=== PATIENT | female | born 1975 | race African-American/Black ===

== ENCOUNTER 2018-07-17 22:22 | Emergency (ER) | payer OTHER ==
[2018-07-17] MEDS ORDERED: Ketorolac 30 MG/ML SDV IVPUSH ONE (22:39)
[2018-07-17] MEDS ORDERED: Sodium Chloride 0.9% 10 ML Syringe FLUSH PRN (22:39)
[2018-07-17] MEDS ORDERED: Sodium Chloride 0.9% 1,000 ML IV ONE (22:39)
[2018-07-17] MEDS ORDERED: Sodium Chloride 0.9% 2.5 ML Syringe FLUSH PRN (22:39)
[2018-07-17] MEDS ORDERED: Morphine 2 MG/ML Syringe IVPUSH ONE (22:39)
--- NOTE | 2018-07-17 22:40 | EDM.PDOC ---
ED HPI GENERAL MEDICAL PROBLEM - General Chief Complaint: Abdominal Pain Stated Complaint: RIGHT SIDE ABDOMINAL PAIN Time Seen by Provider: 07/17/18 22:32 - History of Present Illness INITIAL COMMENTS - FREE TEXT/NARRATIVE: HISTORY AND PHYSICAL: History of present illness: The patient is a 42-year-old female was a known history of hepatitis C but is never received any treatment for that and has never seen a child psychologist and presents with persistent right upper quadrant pain. I saw this patient in April of last year and had done a workup consisting of labs and a CAT scan and at that point she had a slight bump in her LFTs but nothing significant and her CT was within normal limits. She was diagnosed with the UTI and was treated for that. The patient says that she felt better with the antibiotics and that after about 2 or 3 weeks the pain returned. It is constant pretty much every day and is not this early change with activity certain foods. She has not called to schedule a follow-up appointment in the clinic and she says she has no insurance. She has no fevers chills nausea vomiting or diarrhea and no black or bloody stools are pasty stools. She has no chest pain or shortness of breath. The patient says it does not miss early get worse with certain foods but she does eat a lot of avocado and cheese. She has taken [id number] ibuprofen for the pain and has no acid reflux or acid like burps. She says she has been feeling bloated for several months and that that is not new or different. She is here tonight because she is frustrated about the pain. The patient has a history of multiple C-sections and a bilateral tubal ligation but no other abdominal surgical history. Review of systems: As per history of present illness and below otherwise all systems reviewed and negative. Past medical history: As per history of present illness and as reviewed below otherwise noncontributory. Surgical history: As per history of present illness and as reviewed below otherwise noncontributory. Social history: No reported history of drug or alcohol abuse. Family history: As per history of present illness and as reviewed below otherwise noncontributory. Physical exam: General: Well-developed well-nourished female who is overweight and nontoxic and vital signs were noted by me. The patient moves very easily in the ED and does not look like she is in any distress or discomfort. HEENT: Atraumatic, normocephalic, pupils reactive, negative for conjunctival pallor or scleral icterus, mucous membranes moist, throat clear, neck supple, nontender, trachea midline. Lungs: Clear to auscultation, breath sounds equal bilaterally, chest nontender. Heart: S1S2, regular rate and rhythm no overt murmurs Abdomen: Soft, nondistended, Negative for masses or hepatosplenomegaly. Negative for costovertebral tenderness. Bowel sounds are hypoactive and on palpation there is only some tenderness in the right upper quadrant on deep palpation without rebound or guarding. Pelvis: Stable nontender. Genitourinary: Deferred. Rectal: Deferred. Extremities: Atraumatic, full range of motion without defects or deficits. Neurovascular unremarkable. Neuro: Awake, alert, oriented. Cranial nerves II through XII unremarkable. Cerebellum unremarkable. Motor and sensory unremarkable throughout. Exam nonfocal. Diagnostics and Therapeutics: Testing and diagnostics were ordered along with therapeutics including labs CT scan IV fluids and pain medication. The nurse went in to start the patient's IV and was unable to get it and the patient at that point that she doesn't want anymore attempts for IVs and she doesn't want any more treatment. I went into the room and the patient had her coat on already and I asked why she wouldn't let us try to do the testing and the IV again and she said she just didn't want anything done and she personally did not like me and didn't want to be taken care of by me. I told her that was her choice and that was completely fine and she says she like to leave immediately and so she signed an AMA form. Impression: Recurrent right upper quadrant pain with history of hep C, signed AMA prior to testing Definitive disposition and diagnosis as appropriate pending reevaluation and review of above. abdominal Pain Score (Numeric/FACES): 10 - Related Data Allergies Allergy/AdvReac Type Severity Reaction Status Date / Time No Known Allergies Allergy Verified 07/17/18 22:33 Home Meds: Home Meds . 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: - Infectious Disease History Infectious Disease History: Reports: Chicken Pox, Hepatitis C - Past Surgical History GI Surgical History: Reports: None Female Surgical History: Reports: Section, Tubal Ligation Social & Family History - Family History Family Medical History: Noncontributory - Tobacco Use Smoking Status *Q: Current Every Day Smoker Years of Tobacco use: 20 Packs/Tins Daily: 0.5 - Caffeine Use Caffeine Use: Reports: Coffee, Energy Drinks - Recreational Drug Use Recreational Drug Use: No ED ROS GENERAL - Review of Systems Review Of Systems: ROS reveals no pertinent complaints other than HPI. ED EXAM, GENERAL - Physical Exam Exam: See Below (See dictation) Course - Vital Signs Last Recorded V/S: Last Vital Signs Temp 36.1 C 07/17/18 22:31 Pulse 92 07/17/18 22:31 Resp 18 07/17/18 22:31 BP 118/78 07/17/18 22:31 Pulse Ox 95 07/17/18 22:31 - Orders/Labs/Meds Orders: Active Orders 24 hr Category Date Time Status Abdomen Pelvis w Cont [CT] Stat Exams 07/17/18 22:39 Stop Req CBC WITH AUTO DIFF [HEME] Stat Lab 07/17/18 22:39 Stop Req HELICOBACTER PYLORI AB IGG [CHEM] Stat Lab 07/17/18 22:39 Stop Req INR,PT,PROTHROMBIN TIME [COAG] Stat Lab 07/17/18 22:40 Stop Req Sodium Chloride 0.9% [Normal Saline] 1,000 ml Med 07/17/18 22:39 Stop Req IV STAT Labs: Laboratory Tests 07/17/18 Range/Units 22:40 Urine Color YELLOW Urine Appearance CLEAR Urine pH 6.0 (5.0-8.0) Ur Specific [place] >= 1.030 (1.001-1.035) Urine Protein NEGATIVE (NEGATIVE) mg/dL Urine Glucose (UA) NEGATIVE (NEGATIVE) mg/dL Urine Ketones NEGATIVE (NEGATIVE) mg/dL Urine Occult Blood NEGATIVE (NEGATIVE) Urine Nitrite NEGATIVE (NEGATIVE) Urine Bilirubin NEGATIVE (NEGATIVE) Urine Urobilinogen 0.2 (<2.0) EU/dL Ur Leukocyte Esterase NEGATIVE (NEGATIVE) Meds: Medications Discontinued Medications Generic Name Dose Route Start Last Admin Trade Name Freq PRN Reason Stop Dose Admin Sodium Chloride 1,000 mls @ 999 mls/hr 07/17/18 22:39 Normal Saline IV 07/17/18 23:39 STAT ONE Ketorolac Tromethamine 30 mg 07/17/18 22:39 Toradol IVPUSH 07/17/18 22:40 ONETIME ONE Morphine Sulfate 2 mg 07/17/18 22:39 Morphine IVPUSH 07/17/18 22:40 ONETIME ONE Sodium Chloride 10 ml 07/17/18 22:39 Saline Flush FLUSH ASDIRECTED PRN Keep Vein Open Sodium Chloride 2.5 ml 07/17/18 22:39 Saline Flush FLUSH ASDIRECTED PRN Keep Vein Open Departure - Departure Time of Disposition: 22:58 Disposition: Against Medical Advice 07 Condition: Good Clinical Impression: Abdominal pain Qualifiers: Abdominal location: right upper quadrant Qualified Code(s): R10.11 - Right upper quadrant pain - Discharge Information Referrals: PCP,None [Primary Care Provider] - Forms: ED Department Discharge - My Orders Last 24 Hours: My Active Orders 07/17/18 22:39 Abdomen Pelvis w Cont [CT] Stat CBC WITH AUTO DIFF [HEME] Stat Sodium Chloride 0.9% [Normal Saline] 1,000 ml IV STAT 07/17/18 22:40 INR,PT,PROTHROMBIN TIME [COAG] Stat - Assessment/Plan Last 24 Hours: My Active Orders 07/17/18 22:39 Abdomen Pelvis w Cont [CT] Stat CBC WITH AUTO DIFF [HEME] Stat Sodium Chloride 0.9% [Normal Saline] 1,000 ml IV STAT 07/17/18 22:40 INR,PT,PROTHROMBIN TIME [COAG] Stat
== END 2018-07-17 22:55 | disposition left against medical advice (07) ==
LOC: MW.ED 22:22
DX: R10.11 Right upper quadrant pain (principal); F17.210 Nicotine dependence, cigarettes, uncomplicated
CPT/HCPCS: 81003; 99283; 99284

== ENCOUNTER 2019-04-06 16:33 | Emergency (ER) | payer MEDICAID ==
[2019-04-06] MEDS ORDERED: methylPREDNISolone Sodium Succinate 125 MG/2 ML SDV IVPUSH ONE (16:34)
[2019-04-06] MEDS ORDERED: Sodium Chloride 0.9% 1,000 ML IV ONE (16:34)
[2019-04-06] MEDS ORDERED: diphenhydrAMINE 50 MG/ML SDV IVPUSH ONE (16:34)
[2019-04-06] MEDS ORDERED: Albuterol/Ipratropium 3.0-0.5 MG/3 ML Neb Soln NEB ONE (16:34)
--- NOTE | 2019-04-06 16:41 | EDM.PDOC ---
ED HPI GENERAL MEDICAL PROBLEM - General Chief Complaint: General Stated Complaint: ALLERGIC REACTION Time Seen by Provider: 04/06/19 16:34 Source of Information: Reports: Patient History Limitations: Reports: No Limitations - History of Present Illness INITIAL COMMENTS - FREE TEXT/NARRATIVE: HISTORY AND PHYSICAL: History of present illness: Patient is a 43-year-old female who presents to the emergency room with complaints of an allergic reaction. She states she took some wxql-cgv-kilhjkb phentermine (diet pill) this morning - first time ever taking this medication. She felt well, had been at the walk in clinic this afternoon for a abscess on her leg and was given a prescription for Bactrim. 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 She states she has previously taken Bactrim without any difficulty or complications. Has not taken anything for her symptoms. Patient denies any fever, chills, headache, change in vision, syncope or near syncope. Denies any back pain or cough. Denies any abdominal pain, nausea, vomiting, diarrhea, constipation or dysuria. Has not noted any blood in urine or stool. Patient has been eating and drinking appropriately. Review of systems: As per history of present illness and below otherwise all systems reviewed and negative. Past medical history: As per history of present illness and as reviewed below otherwise noncontributory. Surgical history: As per history of present illness and as reviewed below otherwise noncontributory. Social history: See social history for further information Family history: As per history of present illness and as reviewed below otherwise noncontributory. Physical exam: General: Well developed and well nourished 43 year old female. A&O x 3. Nontoxic appearing and in no acute distress. Able to speak in full sentences without any difficulty. HEENT: Atraumatic, normocephalic, pupils equal and reactive bilaterally, negative for conjunctival pallor or scleral icterus, mucous membranes moist, trachea midline. No drooling or trismus noted. No meningeal signs. No hot potato voice noted. Lungs: Expiratory wheezing, breath sounds equal bilaterally, chest nontender. Heart: S1S2, regular rate and rhythm without overt murmur Abdomen: Soft, nondistended, obese, nontender. Negative for masses or hepatosplenomegaly. Negative for costovertebral tenderness. Pelvis: Stable nontender. Skin: Patient does have a golf ball sized flat area of erythema to the left posterior thigh, mildly fluctuant. Nonindurated. Otherwise remaining skin is intact, warm, dry. No lesions or rashes noted. Extremities: Atraumatic, moves all extremities per self without difficulty or deficits, negative for cords or calf pain. Neurovascular unremarkable. Neuro: Awake, alert, oriented. Cranial nerves II through XII unremarkable. Cerebellum unremarkable. Motor and sensory unremarkable throughout. Exam nonfocal. Notes: EKG shows normal sinus tachycardia with rate of 103. Patient feels improvement after the IV fluids and medications. IV established, but was unable to get blood drawn. Patient states that she does not want any more "pokes" and declines labs at this time. VSS. We discussed stopping the rakr-ixr-noafnwh diet pill along with switching her from Bactrim to Keflex. Encouraged her to follow up with her primary care provider for reevaluation. Signs and symptoms that would prompt her to return to the emergency room were reviewed and discussed. Supportive care measures were reviewed and discussed. Patient and significant other at bedside voice understanding and is agreeable to plan of care. Denies any further questions or concerns at this time. Diagnostics: CBC, CMP (declined) Therapeutics: IV fluids, Benadryl, Solu-Medrol, Duo Neb Prescription: Keflex Impression: Allergic reaction Plan: 1. Please stop the Bactrim and do not take the shiu-vso-jrewbmu diet pills at this time. You can continue to apply heat to the area. Start the Keflex tomorrow. 2. Benadryl routinely over the next 24-48 hours. 3. Follow up with your primary care provider as we discussed. Return to the ED as needed and as discussed. Definitive disposition and diagnosis as appropriate pending reevaluation and review of above. chest Pain Score (Numeric/FACES): 10 - Related Data Allergies Allergy/AdvReac Type Severity Reaction Status Date / Time sulfamethoxazole Allergy Chest Pain Verified 04/06/19 18:01 [From Bactrim] trimethoprim [From Bactrim] Allergy Chest Pain Verified 04/06/19 18:01 Home Meds: Home Meds Non-Formulary Medication [NF Drug] 1 tab ASDIRECTED 04/06/19 [History] Sulfamethoxazole/Trimethoprim [Bactrim Ds Tablet] 1 each PO ASDIRECTED 04/06/19 [History] Past Medical History Gastrointestinal History: Reports: Other (See Below) Other Gastrointestinal History: gastric ulcers Genitourinary History: Reports: None 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 ED EXAM, GENERAL - Physical Exam Exam: See Below (See dictation) Course - Vital Signs Last Recorded V/S: Last Vital Signs Temp 97.8 F 04/06/19 16:34 Pulse 92 04/06/19 17:36 Resp 20 04/06/19 17:36 BP 130/79 04/06/19 17:36 Pulse Ox 98 04/06/19 17:36 - Orders/Labs/Meds Orders: Active Orders 24 hr Category Date Time Status EKG Documentation Completion [RC] STAT Care 04/06/19 17:11 Active RT Aerosol Therapy [RC] ASDIRECTED Care 04/06/19 16:34 Active Meds: Medications Discontinued Medications Generic Name Dose Route Start Last Admin Trade Name Delgado PRN Reason Stop Dose Admin Albuterol/Ipratropium 3 ml 04/06/19 16:34 04/06/19 16:54 Duoneb 3.0-0.5 Mg/3 Ml NEB 04/06/19 16:35 3 ml ONETIME ONE Administration Diphenhydramine HCl 50 mg 04/06/19 16:34 04/06/19 16:52 Benadryl IVPUSH 04/06/19 16:35 50 mg ONETIME ONE Administration Sodium Chloride 1,000 mls @ 999 mls/hr 04/06/19 16:34 04/06/19 16:45 Normal Saline IV 04/06/19 17:34 999 mls/hr STAT ONE Administration Methylprednisolone Sodium Succinate 125 mg 04/06/19 16:34 04/06/19 16:53 Solu-Medrol IVPUSH 04/06/19 16:35 125 mg ONETIME ONE Administration Departure - Departure Time of Disposition: 17:48 Disposition: Home, Self-Care 01 Clinical Impression: Allergic reaction caused by a drug Qualifiers: Encounter type: initial encounter Qualified Code(s): T78.40XA - Allergy, unspecified, initial encounter - Discharge Information Instructions: Drug Allergy, Jjqy-tw-[id number] Referrals: PCP,None [Primary Care Provider] - Forms: ED Department Discharge Additional Instructions: The following information is given to patients seen in the emergency department who are being discharged to home. This information is to outline your options for follow-up care. We provide all patients seen in our emergency department with a follow-up referral. The need for follow-up, as well as the timing and circumstances, are variable depending upon the specifics of your emergency department visit. If you don't have a primary care physician on staff, we will provide you with a referral. We always advise you to contact your personal physician following an emergency department visit to inform them of the circumstance of the visit and for follow-up with them and/or the need for any referrals to a consulting specialist. The emergency department will also refer you to a specialist when appropriate. This referral assures that you have the opportunity for follow-up care with a specialist. All of these measure are taken in an effort to provide you with optimal care, which includes your follow-up. Under all circumstances we always encourage you to contact your private physician who remains a resource for coordinating your care. When calling for follow-up care, please make the office aware that this follow-up is from your recent emergency room visit. If for any reason you are refused follow-up, please contact the [facility] Emergency Department at and asked to speak to the emergency department charge nurse. [facility] [address] [place] [address] [id number] [address] [address] 1. Please stop the Bactrim and do not take the lgyf-thw-wlywjpv diet pills at this time. You can continue to apply heat to the area. Start the Keflex tomorrow. 2. Benadryl routinely over the next 24-48 hours. 3. Follow up with your primary care provider as we discussed. Return to the ED as needed and as discussed. - My Orders Last 24 Hours: My Active Orders 04/06/19 16:34 RT Aerosol Therapy [RC] ASDIRECTED 04/06/19 17:11 EKG Documentation Completion [RC] STAT - Assessment/Plan Last 24 Hours: My Active Orders 04/06/19 16:34 RT Aerosol Therapy [RC] ASDIRECTED 04/06/19 17:11 EKG Documentation Completion [RC] STAT
== END 2019-04-06 18:20 | disposition home or self-care (01) ==
LOC: MW.ED 16:33
DX: R07.9 Chest pain, unspecified (principal); R06.02 Shortness of breath; L29.9 Pruritus, unspecified; T36.8X5A Adverse effect of other systemic antibiotics, initial encounter; Z88.2 Allergy status to sulfonamides; Z88.1 Allergy status to other antibiotic agents
CPT/HCPCS: 93005; 96361; 96374; 96375; 99284; J1200; J2930; J7040; 99283; J7620-GY

== ENCOUNTER 2019-08-17 21:24 | Emergency (ER) | payer MEDICAID ==
--- NOTE | 2019-08-17 21:38 | EDM.PDOC ---
ED HPI GENERAL MEDICAL PROBLEM - General Stated Complaint: RASH Time Seen by Provider: 08/17/19 21:37 Source of Information: Reports: Patient History Limitations: Reports: No Limitations - History of Present Illness INITIAL COMMENTS - FREE TEXT/NARRATIVE: HISTORY AND PHYSICAL: History of present illness: Patient is a 43-year-old female who presents to the ED today with concern of possible scabies infection rash. Patient is seen and evaluated in the ED alongside her daughter who presents with a similar rash. Patient states she has had scabies infection in the past and that her symptoms today feel similar to the past infection. Patient states she has had symptoms worsening over the course of the past week as well as her daughter. Patient denies any other symptoms or concerns. Patient denies fever, chills, chest pain, shortness of breath, or cough. Denies headache, neck stiff ness, change in vision, syncope, or near syncope. Denies nausea, vomiting, abdominal pain, diarrhea, constipation, or dysuria. Has not noted any blood in urine or stool. Patient has been eating and drinking appropriately. Review of systems: As per history of present illness and below otherwise all systems reviewed and negative. Past medical history: As per history of present illness and as reviewed below otherwise noncontributory. Surgical history: As per history of present illness and as reviewed below otherwise noncontributory. Social history: See social history for further information Family history: As per history of present illness and as reviewed below otherwise noncontributory. Physical exam: General: Patient is alert, oriented, and in no acute distress. Patient sitting comfortably on exam table. HEENT: Atraumatic, normocephalic, pupils equal and reactive bilaterally, negative for conjunctival pallor or scleral icterus, mucous membranes moist, TMs normal bilaterally, throat clear, neck supple, nontender, trachea midline. No drooling or trismus noted. No meningeal signs. No hot potato voice noted. Lungs: Clear to auscultation, breath sounds equal bilaterally, chest nontender. Heart: S1S2, regular rate and rhythm without overt murmur Abdomen: Soft, nondistended, nontender. Negative for masses or hepatosplenomegaly. Negative for costovertebral tenderness. Pelvis: Stable nontender. Genitourinary: Deferred. Rectal: Deferred. Skin: Intact, warm, dry. No lesions. There is a macular/papular multiple linear rash patients face and bilateral forearms with superficial excoriations surrounding without bleeding, erythema, drainage, warmth, petechia, or purpura. Extremities: Atraumatic, negative for cords or calf pain. Neurovascular unremarkable. Neuro: Awake, alert, oriented. Cranial nerves II through XII unremarkable. Cerebellum unremarkable. Motor and sensory unremarkable throughout. Exam nonfocal. Notes: Discussed importance for follow-up with a primary care provider. Voices understanding and is agreeable to plan of care. Denies any further questions or concerns at this time. Diagnostics: None Therapeutics: None Prescription: Permethrin topical Impression: Dermatitis, suspect scabies, etiology unspecified Plan: 1. Apply medication as prescribed. You can alternate ibuprofen and Tylenol as directed for pain and discomfort. 2. Follow-up with a primary care provider as discussed. Return to the ED as needed and as discussed. Definitive disposition and diagnosis as appropriate pending reevaluation and review of above. - Related Data Allergies Allergy/AdvReac Type Severity Reaction Status Date / Time sulfamethoxazole Allergy Chest Pain Verified 08/17/19 21:50 [From Bactrim] trimethoprim [From Bactrim] Allergy Chest Pain Verified 08/17/19 21:50 Home Meds: Home Meds . 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 ED EXAM, GENERAL - Physical Exam Exam: See Below (see dictation) Departure - Departure Time of Disposition: 21:51 Disposition: Home, Self-Care 01 Clinical Impression: Dermatitis, History of scabies - Discharge Information Instructions: Scabies, Adult Referrals: Louisa Iyer DO [Primary Care Provider] - Additional Instructions: The following information is given to patients seen in the emergency department who are being discharged to home. This information is to outline your options for follow-up care. We provide all patients seen in our emergency department with a follow-up referral. The need for follow-up, as well as the timing and circumstances, are variable depending upon the specifics of your emergency department visit. If you don't have a primary care physician on staff, we will provide you with a referral. We always advise you to contact your personal physician following an emergency department visit to inform them of the circumstance of the visit and for follow-up with them and/or the need for any referrals to a consulting specialist. The emergency department will also refer you to a specialist when appropriate. This referral assures that you have the opportunity for follow-up care with a specialist. All of these measure are taken in an effort to provide you with optimal care, which includes your follow-up. Under all circumstances we always encourage you to contact your private physician who remains a resource for coordinating your care. When calling for follow-up care, please make the office aware that this follow-up is from your recent emergency room visit. If for any reason you are refused follow-up, please contact the [facility] Emergency Department at and asked to speak to the emergency department charge nurse. [facility] Primary [facility] [address] [place] [id number] [place] [address] 1. Apply medication as prescribed. You can alternate ibuprofen and Tylenol as directed for pain and discomfort. 2. Follow-up with a primary care provider as discussed. Return to the ED as needed and as discussed. Sepsis Event Note - Focused Exam Date Exam was Performed: 08/17/19 Time Exam was Performed: 21:51
== END 2019-08-17 22:01 | disposition home or self-care (01) ==
LOC: MW.ED 21:24
DX: L30.9 Dermatitis, unspecified (principal); Z88.2 Allergy status to sulfonamides; Z88.1 Allergy status to other antibiotic agents
CPT/HCPCS: 99282

== ENCOUNTER 2020-02-18 17:51 | Emergency (ER) | payer MEDICAID ==
[2020-02-18] MEDS ORDERED: Ketorolac 30 MG/ML SDV IM ONE (18:06)
[2020-02-18] MEDS ORDERED: Ondansetron 4 MG Tab.DIS PO ONE (18:06)
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
--- NOTE | 2020-02-18 18:31 | CR ---
Chest: 2 views of the chest were obtained. Comparison: No previous chest imaging is available. Heart size and mediastinum are normal. Lungs are clear with no acute parenchymal change. Bony structures are within normal limits for the patient's age. Impression: 1. Nothing acute is appreciated on 2 view chest x-ray. Diagnostic code #1 This report was dictated in MDT
== END 2020-02-18 19:30 | disposition home or self-care (01) ==
LOC: MW.ED 17:51
DX: S06.0X0A Concussion without loss of consciousness, initial encounter (principal); S20.212A Contusion of left front wall of thorax, initial encounter; S00.81XA Abrasion of other part of head, initial encounter; R06.02 Shortness of breath; Z88.2 Allergy status to sulfonamides; Z88.1 Allergy status to other antibiotic agents; V49.40XA Driver injured in collision with unspecified motor vehicles in traffic accident, initial encounter
CPT/HCPCS: 71046; 93005; 96372; 99284; A9270; J1885

== ENCOUNTER 2020-07-31 08:09 | Emergency (ER) | payer MEDICAID, OTHER ==
--- NOTE | 2020-07-31 08:41 | EDM.PDOC ---
ED HPI GENERAL MEDICAL PROBLEM - General Chief Complaint: General Stated Complaint: NO TASTE NOR SMELL Time Seen by Provider: 07/31/20 08:18 Source of Information: Reports: Patient History Limitations: Reports: No Limitations - History of Present Illness INITIAL COMMENTS - FREE TEXT/NARRATIVE: Patient is a 44-year-old female who presents today for decreased smell and taste. Patient states that her daughter tested positive for Covid yesterday and has similar symptoms. Patient is also concerned she may have Covid. Patient denies any shortness of breath has no diarrhea vomiting fever chills or chest pain. Patient states she has been coughing more and is not really taste and or smell. - Related Data Allergies Allergy/AdvReac Type Severity Reaction Status Date / Time sulfamethoxazole Allergy Chest Pain Verified 07/31/20 08:27 [From Bactrim] trimethoprim [From Bactrim] Allergy Chest Pain Verified 07/31/20 08:27 Home Meds: Home Meds . [No Known Home Meds] 02/18/20 [History] Past Medical History - Past Health History Medical/Surgical History: Denies Medical/Surgical History HEENT History: Reports: None Cardiovascular History: Reports: None Respiratory History: Reports: None Gastrointestinal History: Reports: Other (See Below) Other Gastrointestinal History: gastric ulcers Genitourinary History: Reports: None OUTSEWER History: Reports: Musculoskeletal History: Reports: None Neurological History: Reports: None Psychiatric History: Reports: None Endocrine/Metabolic History: Reports: None Insulin Pump Model and Medical Equipment Sales: N/A Hematologic History: Reports: None Oncologic (Cancer) History: Reports: None Dermatologic History: Reports: None - Infectious Disease History Infectious Disease History: Reports: Chicken Pox, Hepatitis C - Past Surgical History Head Surgeries/Procedures: Reports: None HEENT Surgical History: Reports: Tonsillectomy GI Surgical History: Reports: None Female Surgical History: Reports: Section, Tubal Ligation Social & Family History - Family History Family Medical History: No Pertinent Family History - Tobacco Use Tobacco Use Status *Q: Current Every Day Tobacco User Years of Tobacco use: 25 Packs/Tins Daily: 0.3 - Caffeine Use Caffeine Use: Reports: None - Recreational Drug Use Recreational Drug Use: Yes Recreational Drug Type: Reports: Marijuana/Hashish ED ROS GENERAL - Review of Systems Review Of Systems: See Below Constitutional: Reports: No Symptoms HEENT: Reports: No Symptoms Respiratory: Reports: No Symptoms Cardiovascular: Reports: No Symptoms Endocrine: Reports: No Symptoms GI/Abdominal: Reports: No Symptoms : Reports: No Symptoms Musculoskeletal: Reports: No Symptoms Skin: Reports: No Symptoms Neurological: Reports: No Symptoms Psychiatric: Reports: No Symptoms Hematologic/Lymphatic: Reports: No Symptoms Immunologic: Reports: No Symptoms ED EXAM, GENERAL - Physical Exam Exam: See Below Exam Limited By: No Limitations General Appearance: Alert, WD/WN, No Apparent Distress Throat/Mouth: Normal Inspection Respiratory/Chest: No Respiratory Distress, Lungs Clear Cardiovascular: Normal Peripheral Pulses, Regular Rate, Rhythm Neurological: Alert, Oriented, Normal Cognition, Normal Gait Course - Vital Signs Last Recorded V/S: Last Vital Signs Temp 96.8 F L 07/31/20 08:24 Pulse 83 07/31/20 08:24 Resp 18 07/31/20 08:24 BP 132/58 L 07/31/20 08:24 Pulse Ox 94 L 07/31/20 08:24 Departure - Departure Time of Disposition: 08:40 Disposition: Home, Self-Care 01 Condition: Good Clinical Impression: General medical examination - Discharge Information *PRESCRIPTION DRUG MONITORING PROGRAM REVIEWED*: Not Applicable *COPY OF PRESCRIPTION DRUG MONITORING REPORT IN PATIENT ROSIE: Not Applicable Instructions: COVID-19 Frequently Asked Questions, What You Should Know About COVID-19 to Protect Yourself and Others - CDC, COVID-19: Quarantine vs. Isolation - CDC, Prevent the Spread of COVID-19 if You Are Sick - [facility] Referrals: Shirley Goel DO [Primary Care Provider] - Forms: ED Department Discharge Additional Instructions: The following information is given to patients seen in the emergency department who are being discharged to home. This information is to outline your options for follow-up care. We provide all patients seen in our emergency department with a follow-up referral. The need for follow-up, as well as the timing and circumstances, are variable depending upon the specifics of your emergency department visit. If you don't have a primary care physician on staff, we will provide you with a referral. We always advise you to contact your personal physician following an emergency department visit to inform them of the circumstance of the visit and for follow-up with them and/or the need for any referrals to a consulting specialist. The emergency department will also refer you to a specialist when appropriate. This referral assures that you have the opportunity for follow-up care with a specialist. All of these measure are taken in an effort to provide you with optimal care, which includes your follow-up. Under all circumstances we always encourage you to contact your private physician who remains a resource for coordinating your care. When calling for follow-up care, please make the office aware that this follow-up is from your recent emergency room visit. If for any reason you are refused follow-up, please contact the [facility] Emergency Department at and asked to speak to the emergency department charge nurse. Please follow up with your primary care physician. If you do not have a primary care physician, see below: [facility] [address] [place] [id number] [facility] [address] [place] [phone] Please go to the respiratory clinic and have outpatient Covid testing if you develop any shortness of breath or concerning symptoms please return to ED. Sepsis Event Note (ED) - Evaluation Sepsis Screening Result: No Definite Risk - Focused Exam Vital Signs: Vital Signs Temp Pulse Resp BP Pulse Ox 07/31/20 08:24 96.8 F L 83 18 132/58 L 94 L - Assessment/Plan Plan: She is a 44-year-old female presents today for decreased smell and taste. Patient has no symptoms of shortness of breath fever chills or chest pain. Patient will be referred to the respiratory clinic and have outpatient Covid testing.
== END 2020-07-31 08:45 | disposition home or self-care (01) ==
LOC: MW.ED 08:09
DX: Z00.00 Encounter for general adult medical examination without abnormal findings (principal); Z88.2 Allergy status to sulfonamides; Z88.1 Allergy status to other antibiotic agents; Z72.0 Tobacco use
CPT/HCPCS: 99282

== ENCOUNTER 2024-07-19 07:49 | Emergency (ER) | payer SELFPAY ==
[2024-07-19] MEDS: Lidocaine 2% Viscous Solution 15 ML UD PO ONE (08:10)
[2024-07-19] MEDS: Amoxicillin/Clavulanate K 875-125 MG Tab PO ONE (08:10)
[2024-07-19] MEDS: Benzocaine 20% Topical Spray UD MUCMEM ONE (08:10)
== END 2024-07-19 08:13 | disposition home or self-care (01) ==
LOC: MW.ED 07:49
DX: K04.7 Periapical abscess without sinus (principal); K02.9 Dental caries, unspecified; Z88.8 Allergy status to other drugs, medicaments and biological substances; Z79.899 Other long term (current) drug therapy; Z75.8 Other problems related to medical facilities and other health care
CPT/HCPCS: 99282; A9270

== ENCOUNTER 2024-10-19 23:17 | Emergency (ER) | payer SELFPAY | END 2024-10-19 23:53 | disposition home or self-care (01) | LOC: MW.ED 23:17 | DX: G47.00 Insomnia, unspecified (principal); Z88.2 Allergy status to sulfonamides; Z88.8 Allergy status to other drugs, medicaments and biological substances | CPT/HCPCS: 99282; 99283 ==

== ENCOUNTER 2024-10-20 20:38 | Emergency (ER) | payer SELFPAY | END 2024-10-20 21:24 | disposition left against medical advice (07) | LOC: MW.ED 20:38 | DX: Z53.21 Procedure and treatment not carried out due to patient leaving prior to being seen by health care provider (principal) ==

== ENCOUNTER 2024-10-20 22:13 | Emergency (ER) | payer SELFPAY | END 2024-10-20 22:20 | disposition left against medical advice (07) | LOC: MW.ED 22:13 | DX: Z53.21 Procedure and treatment not carried out due to patient leaving prior to being seen by health care provider (principal) ==